=== PATIENT | male | born 1990 | race Caucasian/White ===

== ENCOUNTER 2016-11-16 17:56 | Emergency (ER) | payer BC ==
[2016-11-16 18:09] VITALS: BP 119/72
--- NOTE | 2016-11-16 18:22 | UC ---
UC Dental HPI - HPI Summary HPI Summary: complaint of dental pain upper left jaw molars pain started last night and today is much worse aching ,throbbing pain which was relieved by ibuprofen pain is radiating into the lfeft side of face hasn't been to the dentist for a long time hx of heart mumur always take amoxicillin before procedures denies fever - History of Current Complaint Chief Complaint: UCDentalProblem Stated Complaint: TOOTH ACHE Time Seen by Provider: 11/16/16 18:14 Hx Obtained From: Patient - Allergies/Home Medications Allergies/Adverse Reactions: Allergies Allergy/AdvReac Type Severity Reaction Status Date / Time No Known Allergies Allergy Verified 11/16/16 18:02 Home Medications: Home Medications Ibuprofen TAB* [Advil TAB*] 3 tab PRN 11/16/16 [History] PMH/Surg Hx/FS Hx/Imm Hx Previously Healthy: Yes Cardiovascular History Of: Reports: Cardiac Disorders - HEART MURMUR - Surgical History Surgical History: Yes Surgery Procedure, Year, and Place: DEVIATED SEPTUM CORRECTION, ORAL SURGERY - Family History Known Family History: Positive: None Negative: Cardiac Disease, Hypertension, Diabetes - Social History Occupation: Employed Full-time Alcohol Use: Occasionally Substance Use Type: None, Marijuana Substance Use Comment - Amount & Last Used: daily Smoking Status (MU): Current Every Day Smoker Type: Cigarettes Amount Used/How Often: less than 1ppd Cessation Counseling: Patient Advised to Stop Review of Systems Constitutional: Negative Skin: Negative Eyes: Negative ENT: Dental Pain Respiratory: Negative Cardiovascular: Negative Gastrointestinal: Negative Genitourinary: Negative Motor: Negative Neurovascular: Negative Musculoskeletal: Negative Neurological: Negative Psychological: Negative All Other Systems Reviewed And Are Negative: Yes Physical Exam Triage Information Reviewed: Yes Appearance: No Pain Distress, Well-Nourished Vital Signs: Initial Vital Signs Temp 97.9 F 11/16/16 18:03 Pulse 78 11/16/16 18:03 Resp 18 11/16/16 18:03 BP 119/72 11/16/16 18:03 Pulse Ox 99 11/16/16 18:03 Vital Signs Reviewed: Yes Eyes: Positive: Conjunctiva Clear ENT: Positive: Pharynx normal, TMs normal Dental: Positive: Dental Fracture @ - 14,15, Abscess @ - 14 Neck: Positive: No Lymphadenopathy Respiratory: Positive: Lungs clear, Normal breath sounds, No respiratory distress Cardiovascular: Positive: RRR, Murmur:Dys:Grade _?_/ - 2/5 Abdomen Description: Positive: Nontender, Soft Bowel Sounds: Positive: Present Musculoskeletal: Positive: No Edema Neurological: Positive: Alert Psychological Exam: Normal Skin Exam: Normal Dental Complaint Course/Dx - Differential Dx/Diagnosis Differential Diagnosis/Dx: Dental Abscess, Dental Caries, Fractured Tooth Provider Diagnoses: dental abscess around broken tooth Discharge - Discharge Plan Condition: Stable Disposition: HOME Prescriptions: Amoxicillin CAP* 500 mg PO Q12H #20 cap Patient Education Materials: Dental Abscess (ED) Forms: *Work Release Referrals: [facility] [place] [facility]IAN REFERRAL [Outside] No Primary Care Phys,NOPCP [Primary Care Provider] - Additional Instructions: Please take antibiotic as directed. Increase fluids and rest Take acetaminophen or ibuprofen for fever or pain Please review your discharge instructions. If your symptoms do not improve please call your primary care provider or return to urgent care. DENTAL ABSCESS What is a Dental Abscess? A dental abscess is an infection around the root of a tooth or in the gums or jawbone. The infection causes pus to collect, and a lump can appear. Dental abscesses often get their start when bacteria invade a decayed tooth; the decay may then travel to the gums or jawbone. Decay can also begin in the mouth when teeth are not brushed or flossed properly. Symptoms Might Include: In general, you'll start to have a fever, redness and swelling of the gums or cheek. If you have a lump it may feel hot. Other signs include tooth or mouth pain, a loose tooth, or not being able to close your mouth all the way. If the abscess spreads, your face, neck, or chest may swell. Treatment Recommendations: Rinse your mouth with warm water every hour or as needed to ease the pain. This will help draw the infection from the abscess. For pain, you may take non-prescription medicines such as acetaminophen ( Tylenol) or ibuprofen (Motrin, Advil). To help ease the pain, do not chew on the sore side for at least 2 days; you may need to limit yourself to a liquid diet. Putting ice on your face over the affected area may also relieve the pain. Apply the ice for 10 to 20 minutes out of every hour. Do not leave the ice on for long periods or you can get frostbite. If the abscess is drained, there may be a small hole or drain. Keep the area free of food by rinsing with water after eating. You'll need to return or be seen by a dentist to have the drain removed. The healthcare provider may have prescribed an antibiotic medicine. The medicine should be taken until it is completely gone, even if you are feeling better. If you stop taking the medicine early, the infection may not be completely gone, and the medication may not work the next time. To prevent abscesses: o Andrews regularly with a toothbrush recommended by your dentist. o Floss daily and use a fluoride mouthwash, toothpaste, tablets, or supplements as instructed by your dentist or dental hygienist. o Reduce the amount of sugar in your diet. Call Your Doctor or Return Here IF: You have a high temperature Your pain becomes worse You have any new symptoms or problems that may be due to the medicine you are taking You have new or increased swelling in your face, jaw, cheek, eye, or neck You have any other new symptoms that worry you
== END 2016-11-16 18:35 | disposition home or self-care (01) ==
LOC: UCEAST 17:56
DX: K04.7 Periapical abscess without sinus (principal); K03.81 Cracked tooth; F17.210 Nicotine dependence, cigarettes, uncomplicated
CPT/HCPCS: 99212; G0463

== ENCOUNTER 2017-05-10 18:00 | Emergency (ER) | payer BC ==
[2017-05-10 18:23] VITALS: BP 110/73
--- NOTE | 2017-05-10 18:59 | UC ---
Jayden Resendiz Benjamin, scribed for Hayder Ritter MD on 05/10/17 at 1852 . Skin Complaint HPI - HPI Summary HPI Summary: 27yo male presents with red rash for 3 days on both forearms, bilateral knee caps, shins, and right anterior neck. No recent travel. Pt is not sick and denies any other symptoms. No noted bites and rash sites are not itchy. Pt is a smoker. The patient notes that he has been working outside and wonders if he was exposed to some plant, but at this point denies blistering, itching. - History of Current Complaint Chief Complaint: UCSkin Time Seen by Provider: 05/10/17 18:36 Stated Complaint: RASH Hx Obtained From: Patient Onset/Duration: Sudden Onset, Lasting Days - 3 days, Still Present Timing: Constant Onset Severity: Mild Current Severity: Mild Pain Intensity: 0 Pain Scale Used: 0-10 Numeric Location: Diffuse Character: Redness Aggravating: Nothing Alleviating: Nothing Associated Signs & Symptoms: Positive: Negative - Allergy/Home Medications Allergies/Adverse Reactions: Allergies Allergy/AdvReac Type Severity Reaction Status Date / Time No Known Allergies Allergy Verified 05/10/17 18:23 Home Medications: Home Medications NK [No Home Medications Reported] 05/10/17 [History Confirmed 05/10/17] Review of Systems Constitutional: Negative Skin: Rash - bilateral arms, knee caps, and right neck Eyes: Negative ENT: Negative Respiratory: Negative Cardiovascular: Negative Gastrointestinal: Negative Genitourinary: Negative Motor: Negative Neurovascular: Negative Musculoskeletal: Negative Neurological: Negative Psychological: Negative All Other Systems Reviewed And Are Negative: Yes PMH/Surg Hx/FS Hx/Imm Hx Previously Healthy: Yes - Surgical History Surgical History: Yes Surgery Procedure, Year, and Place: DEVIATED SEPTUM CORRECTION, ORAL SURGERY - Family History Known Family History: Positive: None Negative: Cardiac Disease, Hypertension, Diabetes - Social History Occupation: Employed Full-time Lives: With Family Alcohol Use: Occasionally Substance Use Type: Marijuana Substance Use Comment - Amount & Last Used: daily Smoking Status (MU): Current Every Day Smoker Type: Cigarettes Amount Used/How Often: 1/2 PPD Physical Exam Triage Information Reviewed: Yes Appearance: Well-Appearing, No Pain Distress Vital Signs: Initial Vital Signs Temp 98.5 F 05/10/17 18:20 Pulse 92 05/10/17 18:20 Resp 16 05/10/17 18:20 BP 110/73 05/10/17 18:20 Pulse Ox 100 05/10/17 18:20 Vital Signs Reviewed: Yes ENT: Positive: Normal ENT inspection Neck: Positive: Supple, Nontender Respiratory: Positive: Chest non-tender, Lungs clear, Normal breath sounds Cardiovascular: Positive: RRR, No Murmur, Brisk Capillary Refill Abdomen Description: Positive: Nontender Musculoskeletal: Positive: Strength Intact, ROM Intact, No Edema Neurological: Positive: Alert Psychological: Positive: Normal Response To Family, Age Appropriate Behavior Skin: Positive: rashes - antecubital fossa bilateral and to the anterior knees, and the anterior neck. No blister,pustule, petechia. Non tender. It is red, macular/papular. Non specific. Course/Dx - Course Course Of Treatment: Reviewed pt's medications list. Patient with rash that is at this point self limited. No drainage from rash and he feels well. IF he has worsening of rash or new symptoms he has been directed to go to the ER. - Diagnoses Provider Diagnoses: Nonspecific rash Discharge - Discharge Plan Condition: Good Disposition: HOME Patient Education Materials: Acute Rash (ED) Referrals: No Primary Care Phys,NOPCP [Primary Care Provider] - [facility] [place] PHYSICIAN REFERRAL [Outside] The documentation as recorded by the Jayden victor Benjamin accurately reflects the service I personally performed and the decisions made by Riya virk Walter, MD.
== END 2017-05-10 19:10 | disposition home or self-care (01) ==
LOC: UCEAST 18:00
DX: R21 Rash and other nonspecific skin eruption (principal); F12.90 Cannabis use, unspecified, uncomplicated; F17.210 Nicotine dependence, cigarettes, uncomplicated
CPT/HCPCS: 99211; G0463

== ENCOUNTER 2017-08-31 10:38 | Emergency (ER) | payer BC ==
[2017-08-31 11:02] VITALS: BP 128/79
--- NOTE | 2017-08-31 11:39 | UC ---
Back Pain HPI - HPI Summary HPI Summary: left side of mid low back tight decrease rom, no known injury, similar episode 2 years ago - History of Current Complaint Hx Obtained From: Patient Onset/Duration: Sudden Onset, Lasting Days Timing: Constant Severity Initially: Moderate Severity Currently: Moderate Pain Intensity: 8 Pain Scale Used: 0-10 Numeric Back Pain: Is Discrete @ - left side of mid of back Character: Spasmodic, Stiffness Aggravating Factor(s): Lifting, Bending Alleviating Factor(s): Rest <Maria Fernanda Yeung - Last Filed: 08/31/17 19:52> <Brooklynn Houser - Last Filed: 09/01/17 08:19> - History of Current Complaint Chief Complaint: UCBackPain Stated Complaint: BACK PAIN Time Seen by Provider: 08/31/17 11:31 - Allergies/Home Medications Allergies/Adverse Reactions: Allergies Allergy/AdvReac Type Severity Reaction Status Date / Time No Known Allergies Allergy Verified 08/31/17 11:02 PMH/Surg Hx/FS Hx/Imm Hx Previously Healthy: Yes - Surgical History Surgical History: Yes Surgery Procedure, Year, and Place: DEVIATED SEPTUM CORRECTION, ORAL SURGERY - Family History Known Family History: Positive: None Negative: Cardiac Disease, Hypertension, Diabetes - Social History Occupation: Employed Full-time Lives: With Family Alcohol Use: Occasionally Substance Use Type: Marijuana Substance Use Comment - Amount & Last Used: daily Smoking Status (MU): Heavy Every Day Tobacco Smoker Type: Cigarettes Amount Used/How Often: 1/2 PPD Household Exposure Type: Cigarettes Cessation Counseling: Patient Advised to Stop - Immunization History Most Recent Influenza Vaccination: Not UTD <Maria Fernanda Yeung - Last Filed: 08/31/17 19:52> Review of Systems Constitutional: Negative Skin: Negative Eyes: Negative ENT: Negative Respiratory: Negative Cardiovascular: Negative Gastrointestinal: Negative Genitourinary: Negative Motor: Negative Neurovascular: Negative Musculoskeletal: Myalgia - left side of lower mid back Neurological: Negative Psychological: Negative Is Patient Immunocompromised?: No All Other Systems Reviewed And Are Negative: Yes <Maria Fernanda Yeung - Last Filed: 08/31/17 19:52> Physical Exam Triage Information Reviewed: Yes Appearance: Well-Appearing, Well-Nourished, Pain Distress - mild Vital Signs: Initial Vital Signs Temp 98.0 F 08/31/17 10:58 Pulse 72 08/31/17 10:58 Resp 16 08/31/17 10:58 BP 128/79 08/31/17 10:58 Pulse Ox 98 08/31/17 10:58 Vital Signs Reviewed: Yes Eye Exam: Normal Eyes: Positive: Conjunctiva Clear ENT Exam: Normal ENT: Positive: Normal ENT inspection, Hearing grossly normal. Negative: Nasal drainage, TM bulging, Trismus, Muffled voice, Hoarse voice Dental Exam: Normal Neck exam: Normal Neck: Positive: Supple, Nontender Respiratory Exam: Normal Respiratory: Positive: Chest non-tender, No respiratory distress, No accessory muscle use Cardiovascular Exam: Normal Cardiovascular: Positive: RRR, Pulses Normal, Brisk Capillary Refill Musculoskeletal Exam: Normal Musculoskeletal: Positive: Strength Intact, No Edema, ROM Limited @ - back/waist Neurological Exam: Normal Neurological: Positive: Alert, Muscle Tone Normal Psychological Exam: Normal Skin Exam: Normal <Maria Fernanda Yeung - Last Filed: 08/31/17 19:52> Vital Signs: Initial Vital Signs Temp 98.0 F 08/31/17 10:58 Pulse 72 08/31/17 10:58 Resp 16 08/31/17 10:58 BP 128/79 08/31/17 10:58 Pulse Ox 98 08/31/17 10:58 <Brooklynn Houser - Last Filed: 09/01/17 08:19> Back Pain Course/Dx - Course Course Of Treatment: naproxen, flexeril gentle exercise, follow with pt and pcp - Differential Dx/Diagnosis Provider Diagnoses: back spasm, nicotine dependent <Maria Fernanda Yeung - Last Filed: 08/31/17 19:52> Discharge <Maria Fernanda Yeung - Last Filed: 08/31/17 19:52> <Brooklynn Houser - Last Filed: 09/01/17 08:19> - Discharge Plan Condition: Stable Disposition: HOME Prescriptions: Cyclobenzaprine TAB* [Flexeril 10 MG TAB*] 10 mg PO BID PRN #15 tab PRN Reason: muscle spasm Naproxen Sodium [Naproxen Sodium 500 MG TAB] 500 mg PO BID #20 tab Patient Education Materials: Low Back Strain (ED), Lower Back Exercises (ED) Forms: *Work Release Referrals: [facility] [place] PHYS[facility]IAN REFERRAL [Outside] - 1 Week Attestation Statement User Type: Provider - I was available for consult. This patient was seen by the RICHARD. The patient was not presented to, seen by, or examined by me. -Jian <Brooklynn Houser - Last Filed: 09/01/17 08:19>
== END 2017-08-31 11:55 | disposition home or self-care (01) ==
LOC: UCEAST 10:38
DX: M62.830 Muscle spasm of back (principal); F12.90 Cannabis use, unspecified, uncomplicated; F17.210 Nicotine dependence, cigarettes, uncomplicated; Z71.6 Tobacco abuse counseling
CPT/HCPCS: 99212; G0463

== ENCOUNTER 2019-01-23 10:14 | Emergency (ER) | payer SELFPAY ==
[2019-01-23 10:27] VITALS: BP 121/79
--- NOTE | 2019-01-23 12:14 | UC ---
Eye Complaint HPI - HPI Summary HPI Summary: Onset yesterday of left eye redness and irritation. This morning had crust and drainage. No visual disturbance. Has allergies and so has had some nasal congestion recently. No outright URI. No fever. - History of Current Complaint Chief Complaint: UCEye Stated Complaint: EYE REDNESS Time Seen by Provider: 01/23/19 12:01 Hx Obtained From: Patient Onset/Duration: Gradual Onset, Lasting Days, Still Present Timing: Constant Severity Initially: Mild Severity Currently: Moderate Pain Intensity: 0 Pain Scale Used: 0-10 Numeric Location of Injury: Conjunctiva Aggravating Factor(s): Nothing Alleviating Factor(s): Nothing Associated Signs And Symptoms: Positive: Drainage (Clear). Negative: Photophobia, Vision Impairment Bilateral - Allergies/Home Medications Allergies/Adverse Reactions: Allergies Allergy/AdvReac Type Severity Reaction Status Date / Time No Known Allergies Allergy Verified 01/23/19 10:27 PMH/Surg Hx/FS Hx/Imm Hx - Additional Past Medical History Additional PMH: ALLERGIES - Surgical History Surgical History: Yes Surgery Procedure, Year, and Place: DEVIATED SEPTUM CORRECTION, ORAL SURGERY - Family History Known Family History: Positive: None Negative: Cardiac Disease, Hypertension, Diabetes - Social History Alcohol Use: Occasionally Substance Use Type: Marijuana Substance Use Comment - Amount & Last Used: daily Smoking Status (MU): Light Every Day Tobacco Smoker Type: Cigarettes Amount Used/How Often: 1/2 PPD Household Exposure Type: Cigarettes - Immunization History Most Recent Influenza Vaccination: Not UTD Review of Systems All Other Systems Reviewed And Are Negative: Yes Constitutional: Positive: Negative Eyes: Positive: Drainage, Eye Redness ENT: Positive: Nasal Discharge Respiratory: Positive: Negative Cardiovascular: Positive: Negative Physical Exam Triage Information Reviewed: Yes Appearance: Well-Appearing, No Pain Distress, Well-Nourished Vital Signs: Initial Vital Signs Temp 98 F 01/23/19 10:24 Pulse 72 01/23/19 10:24 Resp 16 01/23/19 10:24 BP 121/79 01/23/19 10:24 Pulse Ox 100 01/23/19 10:24 Vital Signs Reviewed: Yes Eyes: Positive: Conjunctiva Inflamed - LEFT EYE, Discharge - LEFT EYE CLEAR DRAINAGE, Other: - PERRL, EOMI. NO FB IDENTIFIED ENT: Positive: Hearing grossly normal Neck: Positive: Supple Respiratory: Positive: No respiratory distress, No accessory muscle use Cardiovascular: Positive: Pulses Normal Abdomen Description: Positive: Soft Musculoskeletal: Positive: No Edema Neurological: Positive: Alert Psychological: Positive: Age Appropriate Behavior Skin: Negative: Rashes Eye Complaint Course/Dx - Differential Dx/Diagnosis Provider Diagnosis: Conjunctivitis, left eye Discharge - Sign-Out/Discharge Documenting (check all that apply): Patient Departure All imaging exams completed and their final reports reviewed: No Studies - Discharge Plan Condition: Stable Disposition: HOME Prescriptions: Ciprofloxacin 0.3% OPTH.BÁRBARA* [Cipro 0.3% Opth*] 1 drop LEFT EYE Q4H #1 btl Patient Education Materials: Conjunctivitis (ED) Forms: *Work Release Referrals: [facility] [Outside] - If Needed Additional Instructions: CALL THE NUMBER BELOW FOR ASSISTANCE IN ESTABLISHING WITH A PCP An additional resource available to assist in finding the appropriate physician for your health care needs is the [facility] ([facility]). You may contact them by calling [phone]. - Billing Disposition and Condition Condition: STABLE Disposition: Home
== END 2019-01-23 12:26 | disposition home or self-care (01) ==
LOC: UCEAST 10:14
DX: H10.9 Unspecified conjunctivitis (principal); R09.81 Nasal congestion; F17.210 Nicotine dependence, cigarettes, uncomplicated
CPT/HCPCS: 99212; G0463

== ENCOUNTER 2019-06-11 12:32 | Emergency (ER) | payer OTHER ==
[2019-06-11 12:45] VITALS: BP 115/82
--- NOTE | 2019-06-11 12:56 | UC ---
Skin Complaint HPI - HPI Summary HPI Summary: 29 yo male presents with lump to back. He tells me that for years he has had a lump to his upper back. Over the last week he feels the area has enlarged a little and has become tender. He has never had this evaluated and has never caused him pain in the past. Denies trauma to the area. No fevers or chills. - History of Current Complaint Chief Complaint: UCSkin Time Seen by Provider: 06/11/19 12:49 Stated Complaint: LUMP ON SHOULDER Hx Obtained From: Patient Onset/Duration: Gradual Onset Current Severity: Mild Pain Intensity: 2 Pain Scale Used: 0-10 Numeric - Allergy/Home Medications Allergies/Adverse Reactions: Allergies Allergy/AdvReac Type Severity Reaction Status Date / Time No Known Allergies Allergy Verified 06/11/19 12:45 Home Medications: Home Medications NK [No Home Medications Reported] 06/11/19 [History Confirmed 06/11/19] PMH/Surg Hx/FS Hx/Imm Hx - Additional Past Medical History Additional PMH: None - Surgical History Surgical History: Yes Surgery Procedure, Year, and Place: DEVIATED SEPTUM CORRECTION, ORAL SURGERY - Family History Known Family History: Positive: None Negative: Cardiac Disease, Hypertension, Diabetes - Social History Lives: With Family Alcohol Use: Weekly Substance Use Type: Marijuana Substance Use Comment - Amount & Last Used: daily Smoking Status (MU): Light Every Day Tobacco Smoker Type: Cigarettes Amount Used/How Often: 1/2 PPD Household Exposure Type: Cigarettes - Immunization History Most Recent Influenza Vaccination: Not UTD Review of Systems All Other Systems Reviewed And Are Negative: Yes Constitutional: Positive: Negative Skin: Positive: Other - lump on back Respiratory: Positive: Negative Cardiovascular: Positive: Negative Gastrointestinal: Positive: Negative Neurovascular: Positive: Negative Neurological: Positive: Negative Psychological: Positive: Negative Physical Exam - Summary Physical Exam Summary: GENERAL: NAD. WDWN. No pain distress. SKIN: Upper back with 1.5cm slightly fluctuant, but firm growth under the skin. Skin is well appearing without erythema, induration, open wound, or drainage. NECK: Supple. Nontender. No lymphadenopathy. CHEST: No accessory muscle use. Breathing comfortably and in no distress. CV: Pulses intact. Cap refill <2seconds NEURO: Alert. PSYCH: Age appropriate behavior. Triage Information Reviewed: Yes Vital Signs: Initial Vital Signs Temp 98.5 F 08/13/19 12:41 Pulse 80 06/11/19 12:41 Resp 18 06/11/19 12:41 BP 115/82 06/11/19 12:41 Pulse Ox 99 06/11/19 12:41 Vital Signs Reviewed: Yes Course/Dx - Course Course Of Treatment: Suspect cyst vs lipmoa. Discussed ding an incision and drainage in the clinic today, but pt prefers watchful waiting. Advised that if this area continues to cause him discomfort or enlarge to f/u with dermatology for likely excision. - Diagnoses Provider Diagnosis: Subcutaneous nodule of back Discharge - Sign-Out/Discharge Documenting (check all that apply): Patient Departure All imaging exams completed and their final reports reviewed: No Studies - Discharge Plan Condition: Stable Disposition: HOME Patient Education Materials: Epidermal Inclusion Cysts (ED), Lipoma (ED) Referrals: No Primary Care Phys,NOPCP [Primary Care Provider] - Emmanuel Spear MD [Medical Doctor] - As Soon As Possible Additional Instructions: If you develop a fever, shortness of breath, chest pain, new or worsening symptoms - please call your PCP or go to the ED immediately. The lump on your back does not appear to be infectious. I recommend that you schedule an appointment with dermatology for their next available appointment to have this removed if it continues to give you trouble - Billing Disposition and Condition Condition: STABLE Disposition: Home
== END 2019-06-11 13:04 | disposition home or self-care (01) ==
LOC: UCEAST 12:32
DX: R22.2 Localized swelling, mass and lump, trunk (principal); F17.210 Nicotine dependence, cigarettes, uncomplicated
CPT/HCPCS: 99211; G0463

== ENCOUNTER 2019-10-10 14:06 | Emergency (ER) | payer OTHER ==
[2019-10-10 14:24] VITALS: BP 135/76
--- NOTE | 2019-10-10 14:40 | UC ---
Palpitation/Dysrhythmia HP - HPI Summary HPI Summary: 29 yo male presents here for evaluation Starts he gets a strong beat every 2 hours or so for the past three days lasts a second no CP or SOB smoker drinks coffee and soda no URI no wt change worse at rest better when active Known heart murmur take prophylactic antibiotics with dental procedures - History of Current Complaint Chief Complaint: UCChestPain Stated Complaint: CHEST PAIN HEART BEATING HARD Time Seen by Provider: 10/10/19 14:33 Hx Obtained From: Patient Timing: Intermittent Episodes Lasting: - 1 second Severity Initially: Mild Severity Currently: None Pain Intensity: 0 Pain Scale Used: 0-10 Numeric Character: Pounding Aggravating Factor(s): Rest Alleviating Factor(s): Exertion Associated Signs & Symptoms: Negative: Lightheadedness, Dizzy, Syncope, Chest Pain, Shortness of Breath, Diaphoresis, Nausea, Vomiting - Allergy/Home Medications Allergies/Adverse Reactions: Allergies Allergy/AdvReac Type Severity Reaction Status Date / Time No Known Allergies Allergy Verified 10/10/19 14:24 PMH/Surg Hx/FS Hx/Imm Hx Previously Healthy: Yes - Surgical History Surgical History: Yes Surgery Procedure, Year, and Place: DEVIATED SEPTUM CORRECTION, ORAL SURGERY - Family History Known Family History: Positive: None, Other - grandparent with prostate CA Negative: Cardiac Disease, Hypertension, Diabetes - Social History Alcohol Use: Weekly Substance Use Type: Marijuana Substance Use Comment - Amount & Last Used: daily Smoking Status (MU): Light Every Day Tobacco Smoker Type: Cigarettes Amount Used/How Often: 1/2 PPD Household Exposure Type: Cigarettes - Immunization History Most Recent Influenza Vaccination: Not UTD Review of Systems All Other Systems Reviewed And Are Negative: Yes Constitutional: Positive: Negative Skin: Positive: Negative Eyes: Positive: Negative ENT: Positive: Negative Respiratory: Positive: Negative Cardiovascular: Positive: Palpitations Gastrointestinal: Positive: Negative Genitourinary: Positive: Negative Motor: Positive: Negative Neurovascular: Positive: Negative Musculoskeletal: Positive: Negative Neurological: Positive: Negative Psychological: Positive: Negative Physical Exam Triage Information Reviewed: Yes Appearance: Well-Appearing, No Pain Distress, Well-Nourished Vital Signs: Initial Vital Signs Temp 98.8 F 10/10/19 14:21 Pulse 75 10/10/19 14:21 Resp 16 10/10/19 14:21 BP 135/76 10/10/19 14:21 Pulse Ox 99 10/10/19 14:21 Vital Signs Reviewed: Yes Eyes: Positive: Conjunctiva Clear ENT: Positive: Hearing grossly normal, Uvula midline. Negative: Nasal congestion, Nasal drainage, Trismus, Muffled voice, Hoarse voice Dental Exam: Normal Neck: Positive: Nontender, No Lymphadenopathy, Other: - no thyromegaly Respiratory: Positive: Lungs clear, Normal breath sounds, No respiratory distress, No accessory muscle use Cardiovascular: Positive: RRR. Negative: No Murmur - III/ holosystolic murmur Abdomen Description: Positive: Nontender, No Organomegaly, Soft. Negative: CVA Tenderness (R), CVA Tenderness (L) Bowel Sounds: Positive: Present Musculoskeletal: Positive: ROM Intact, No Edema Neurological: Positive: Alert - grossly non-focal Psychological Exam: Normal Skin Exam: Normal Diagnostics - EKG Cardiac Rate: NL Cardiac Rhythm: Sinus: Normal Ectopy: None ST Segment: Normal Palpitations Course/Dx - Differential Dx/Diagnosis Provider Diagnosis: Palpitations Discharge ED - Sign-Out/Discharge Documenting (check all that apply): Patient Departure All imaging exams completed and their final reports reviewed: No Studies - Discharge Plan Condition: Stable Disposition: HOME Patient Education Materials: Heart Palpitations (DC) Referrals: No Primary Care Phys,NOPCP [Primary Care Provider] - Additional Instructions: Continue to work with Patt Pina to find a primary recheck for new or worsening symptoms as discussed try to decrease tobacco and caffeine use - Billing Disposition and Condition Condition: STABLE Disposition: Home
[2019-10-10 19:07] LABS: Calcium 9.7 mg/dL (8.6-10.3); Potassium 4.3 mmol/L (3.5-5.0)
[2019-10-10 19:13] LABS: BUN/Creatinine Ratio 14.9 (8-20); EGFR African American 123.8 (>60); EGFR Non-African American 102.3 (>60)
[2019-10-10 19:30] LABS: TSH (Thyroid Stimulating Horm) 1.75 mcIU/mL (0.34-5.60)
[2019-10-10 22:09] LABS: ABS Eosinophils 0.3 10^3/ul (0-0.6); ABS Lymphocytes 2.8 10^3/ul (1.0-4.8); ABS Monocytes 0.8 10^3/ul (0-0.8); ABS Neutrophils 5.3 10^3/ul (1.5-7.7); Eosinophil % 3.7 %; Hematocrit 46 % (42-52); Lymphocyte % 30.6 %; Mean Corpuscular HGB Conc 34 g/dL (31-36); Mean Corpuscular Hemoglobin 30 pg (27-31); Mean Corpuscular Volume 88 fL (80-94); Mean Platelet Volume 10.5 fL (7.4-10.4); Nucleated Red Blood Cells % 0.1; Platelet Count 239 10^3/uL (150-450); Red Blood Count 5.26 10^6 /uL (4.18-5.48); Red Cell Distribution Width 13 % (10-15); White Blood Count 9.3 10^3/uL (3.5-10.8)
== END 2019-10-10 15:02 | disposition home or self-care (01) ==
LOC: UCEAST 14:06
DX: R00.2 Palpitations (principal); R07.9 Chest pain, unspecified; F17.210 Nicotine dependence, cigarettes, uncomplicated
CPT/HCPCS: 36415; 80048; 84443; 85025; 99211; G0463